=== PATIENT | male | born 1980 | race Caucasian/White ===

== ENCOUNTER → 2021-06-15 13:36 | Outpatient (CLI) | payer BC, SELFPAY ==
--- NOTE | ~2021-06-15 | XR_ITS ---
XR chest 2V DATE: 06/15/2021 13:54 INDICATION: Chest pain TECHNIQUE: PA and lateral views COMPARISON: None FINDINGS: Normal heart size. No hilar or mediastinal enlargement. No pulmonary infiltrate or consoli dation, pleural effusion or pulmonary vascular congestion or pneumothorax is detected. IMPRESSION: No active cardiopulmonary disease Reviewed, dictated and finalized at location [facility].
== END ==
PROVIDERS: PCP Family Medicine; Visit Provider Family Medicine
DX: R07.9 Chest pain, unspecified (principal)
CPT/HCPCS: 71046

== ENCOUNTER 2021-09-15 10:20 | Outpatient (CLI) | payer BC, SELFPAY ==
--- NOTE | ~2021-09-15 | XR_ITS ---
XR abdomen/kub 1V DATE: 09/15/2021 10:36 INDICATION: Diarrhea for one week TECHNIQUE: AP projection, 2 views COMPARISON: None FINDINGS: The lung bases are clear. The psoas shadows are intact. No visceromegaly or abnormal calcif ication is noted. There is no evidence of bowel obstruction. Included skeletal structures are unremar kable. IMPRESSION: Negative Reviewed, dictated and finalized at [facility]. Reviewed, dictated and finalized at location [facility]. IMPRESSION: Negative
[2021-09-15 16:28] LABS: IFOB Positive Control Positive; Immunochemical Fecal Occult Bl Positive (N)
[2021-09-15 16:44] LABS: Toxigenic C. Diff NEGATIVE (NEGATIVE)
== END 2021-09-15 10:21 | disposition home or self-care (01) ==
PROVIDERS: PCP Family Medicine; Visit Provider Physician Assistant
DX: R19.7 Diarrhea, unspecified (principal); R10.9 Unspecified abdominal pain
CPT/HCPCS: 74018; 82274; 87045; 87177; 87209; 87427; 87493; 89055

== ENCOUNTER 2021-11-08 01:51 | Day surgery (SDC) | payer BC, SELFPAY ==
[2021-10-31 11:11] VITALS: BMI 30.4
[2021-11-08 10:16] VITALS: BP 134/83; PULSE 77; RESP 18; TEMP 36.5; O2SAT 100
[2021-11-08] MEDS: LACTATED RINGERS 1,000 ML 150 ML IV CONT (10:18)
--- NOTE | 2021-11-08 10:44 | WPDANESEPPF ---
Anes - Initial Pre Proc Eval Procedure: Operation Date: 11/08/21 13:00 Proposed Procedures p Colonoscopy - Pola Canela MD Date/Time: 11/08/21 10:44 Surgeon: Pola Canela MD Pre Op Diagnosis: occult GI bleed Patient Data Age: 41 Gender: M Height: 1.83 m Weight: 100.2 kg Last Vital Signs Temp 97.7 F 11/08/21 10:16 Pulse 77 11/08/21 10:16 Resp 18 11/08/21 10:16 BP 134/83 11/08/21 10:16 Pulse Ox 100 11/08/21 10:16 O2 Del Method Room Air 11/08/21 10:16 Allergies Allergy/AdvReac Type Severity Reaction Status Date / Time No Known Allergies Allergy Verified 11/08/21 10:15 Home Medications Medication Instructions Recorded Confirmed Type rosuvastatin 10 mg tablet (Crestor) 10 mg PO .HS #90 tabs 09/13/21 11/08/21 Rx lisinopril 40 mg tablet 40 mg PO DAILY #90 tabs 10/14/21 11/08/21 Rx Patient hx anesthesia problems: none Family hx anesthesia problems: none Results Review: All pre-operative results and documents have been reviewed as part of the pre-operative evaluation. [facility], [facility] Past Medical History Medical History Diarrhea History of high cholesterol History of hypertension Occult blood in stools Family History Family History Father Heart disease Hypertension Mother Heart disease Hypertension Social History Social History Smoking status: Never smoker Second hand tobacco smoke exposure: No Alcohol intake: current Drinks per week: 6 Alcohol use details: BEERS/WINE Substance use: never Substance use type: does not use Living arrangements: with family Gender identity (if verbalized by the patient): Male Spiritual care concerns: No Anes - Eval Final PreProcedure Day of Procedure 11/08/21 10:44 Patient weight: overweight Heart: regular rate and rhythm Lungs: clear to auscultation Airway: Mallampati scale class II Neurological: alert and oriented Last oral intake: >/= 8 hours ASA classification: II Emergent: no Anesthetic plan: proceed Anesthesia type and monitoring: general GIVS and standard monitoring Results Review: All pre-operative results and documents have been reviewed as part of the pre-operative evaluation. Informed Consent: The patient's anesthetic plan and its attendant risks and benefits were discussed with the patient/family/POA. Questions were solicited and answers provided to the satisfaction of the patient/family/POA.
--- NOTE | 2021-11-08 10:56 | WPDHPUPDATE1 ---
History and Physical Update Update Date/Time: 11/08/21 10:56 History and Physical has been reviewed, including an updated exam of the patient. There are NO changes in the patient's condition. Risks, benefits, and alternatives have been discussed and questions answered. Patient agrees to proceed with procedure.
[2021-11-08 11:12] VITALS: BP 111/66; PULSE 78; RESP 20; O2SAT 100
[2021-11-08 11:22] VITALS: BP 112/75; PULSE 66; RESP 21; O2SAT 100
[2021-11-08 11:32] VITALS: BP 122/91; PULSE 60; RESP 16; O2SAT 100
== END 2021-11-08 11:42 | disposition home or self-care (01) ==
PROVIDERS: PCP Family Medicine; Visit Provider Internal Medicine Gastroenterology
PROC: 0DJD8ZZ Inspection of Lower Intestinal Tract, Via Natural or Artificial Opening Endoscopic (ICD-10-PCS; CPT 45378; principal; 2021-11-08 13:00)
DX: Z12.11 Encounter for screening for malignant neoplasm of colon (principal); R19.5 Other fecal abnormalities; K64.8 Other hemorrhoids; I10 Essential (primary) hypertension; E78.00 Pure hypercholesterolemia, unspecified
CPT/HCPCS: 45378; J2704; J7120

== ENCOUNTER → 2021-12-21 09:51 | Outpatient (CLI) | payer BC, SELFPAY ==
--- NOTE | ~2021-12-21 | XR_ITS ---
XR_CERV2-3V_CR DATE: 12/21/2021 10:12 INDICATION: Right neck and arm pain for 2 weeks. No injury. TECHNIQUE: AP, lateral, open-mouth views COMPARISON: None FINDINGS: Normal alignment of the cervical spine. C1 and C2 are normally aligned and the odontoid pro cess is intact. No fracture or dislocation or locked facet or prevertebral soft tissue swelling. Cerv ical interspaces are preserved. IMPRESSION: No significant abnormality Reviewed, dictated and finalized at [facility]. Reviewed, dictated and finalized at location [facility]. 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
== END ==
PROVIDERS: PCP Family Medicine; Visit Provider Family Medicine
DX: M54.2 Cervicalgia (principal)
CPT/HCPCS: 72040

== ENCOUNTER 2022-04-17 00:57 | Day surgery (SDC) | payer BC, SELFPAY ==
[2022-04-12 11:55] VITALS: BMI 30.5
[2022-04-17 10:32] VITALS: BP 128/90; PULSE 77; RESP 18; TEMP 36.1; O2SAT 100; BMI 30.4
[2022-04-17] MEDS: LACTATED RINGERS 1,000 ML 150 ML IV CONT (10:44)
--- NOTE | 2022-04-17 10:57 | WPDANESEPPF ---
Anes - Initial Pre Proc Eval Procedure: Operation Date: 04/17/22 12:30 Proposed Procedures p Esophagogastroduodenoscopy - Pola Canela MD Date/Time: 04/17/22 10:57 Surgeon: Pola Canela MD Pre Op Diagnosis: Abdominal pain Patient Data Age: 41 Gender: M Height: 1.83 m Weight: 101.9 kg Last Vital Signs Temp 36.1 C L 04/17/22 10:32 Pulse 77 04/17/22 10:32 Resp 18 04/17/22 10:32 BP 128/90 04/17/22 10:32 Pulse Ox 100 04/17/22 10:32 O2 Del Method Room Air 04/17/22 10:32 Allergies Allergy/AdvReac Type Severity Reaction Status Date / Time No Known Allergies Allergy Verified 04/17/22 10:31 Home Medications Medication Instructions Recorded Confirmed Type lisinopril 40 mg tablet 40 mg PO DAILY #90 tabs 10/14/21 04/17/22 Rx rosuvastatin 10 mg tablet (Crestor) 10 mg PO .HS #90 tabs 12/20/21 04/17/22 Rx Patient hx anesthesia problems: none Family hx anesthesia problems: none Results Review: All pre-operative results and documents have been reviewed as part of the pre-operative evaluation. [facility] Past Medical History Medical History Colon cancer screening Diarrhea History of high cholesterol History of hypertension Non-cardiac chest pain Occult blood in stools Upper abdominal pain Surgical History Surgical History (Updated 04/17/22 @ 10:57 by Shahzad Henson MD) H/O colonoscopy Family History Family History Father Heart disease Hypertension Mother Heart disease Hypertension Social History Social History Smoking status: Never smoker Second hand tobacco smoke exposure: No Alcohol intake: current Drinks per week: 6 Alcohol use details: BEERS/WINE Substance use: never Substance use type: does not use Living arrangements: with family Occupation/Education: occupation Gender identity (if verbalized by the patient): Male Spiritual care concerns: No Anes - Eval Final PreProcedure Day of Procedure 04/17/22 10:57 Patient weight: obese Heart: regular rate and rhythm Lungs: clear to auscultation Airway: Mallampati scale class II Neurological: alert and oriented Last oral intake: >/= 8 hours ASA classification: II Emergent: no Anesthetic plan: proceed Anesthesia type and monitoring: general GIVS and standard monitoring Results Review: All pre-operative results and documents have been reviewed as part of the pre-operative evaluation. Informed Consent: The patient's anesthetic plan and its attendant risks and benefits were discussed with the patient/family/POA. Questions were solicited and answers provided to the satisfaction of the patient/family/POA.
--- NOTE | 2022-04-17 11:39 | WPDHPUPDATE1 ---
History and Physical Update Update Date/Time: 04/17/22 11:39 History and Physical has been reviewed, including an updated exam of the patient. There are NO changes in the patient's condition. Risks, benefits, and alternatives have been discussed and questions answered. Patient agrees to proceed with procedure.
[2022-04-17 11:49] VITALS: BP 100/52; PULSE 68; RESP 20; O2SAT 100
[2022-04-17 11:59] VITALS: BP 101/54; PULSE 75; RESP 22; O2SAT 100
[2022-04-17 12:09] VITALS: BP 105/66; PULSE 62; RESP 17; O2SAT 100
== END 2022-04-17 12:18 | disposition home or self-care (01) ==
PROVIDERS: PCP Family Medicine; Visit Provider Internal Medicine Gastroenterology
PROC: 0DJ08ZZ Inspection of Upper Intestinal Tract, Via Natural or Artificial Opening Endoscopic (ICD-10-PCS; CPT 43235; principal; 2022-04-17 12:30)
DX: R10.11 Right upper quadrant pain (principal); K21.00 Gastro-esophageal reflux disease with esophagitis, without bleeding; K44.9 Diaphragmatic hernia without obstruction or gangrene; E78.00 Pure hypercholesterolemia, unspecified; I10 Essential (primary) hypertension; R07.89 Other chest pain
CPT/HCPCS: 43239; 88305; J2704; J7120

== ENCOUNTER 2022-04-17 09:30 | Outpatient (CLI) | payer BC, SELFPAY ==
--- NOTE | ~2022-04-17 | US_ITS ---
Abdominal Sonogram: Real-time sonographic imaging of the abdomen was performed. Clinical History: Abdominal pain Findings: The liver appears mildly heterogeneous, with no evidence of mass lesion or bile duct dilat ation. Main portal vein demonstrates normal direction of flow. The spleen is normal in size without e vidence of focal lesion. The gallbladder is well distended, and appears normal with no evidence of g allstone or wall thickening. The common bile duct measures 6 mm. The visualized pancreas, aorta, and IVC are unremarkable. The right kidney measures 12.5 cm in length and the left kidney measures 12.0 cm. There is no hydronephrosis or renal calculus. Impression: Heterogeneous hepatic echotexture raises the possibility of fatty infiltration of the chronic liver d isease. Correlate clinically and with LFTs. Reviewed, dictated and finalized at [facility]. Impression: Heterogeneous hepatic echotexture raises the possibility of fatty infiltration of the chronic liver disease. Correlate clinically and with LFTs.
== END 2022-04-17 09:31 | disposition home or self-care (01) ==
PROVIDERS: PCP Family Medicine; Visit Provider Internal Medicine Gastroenterology
DX: R10.10 Upper abdominal pain, unspecified (principal); R07.89 Other chest pain
CPT/HCPCS: 76700

== ENCOUNTER 2022-08-01 01:09 | Day surgery (SDC) | payer BC, SELFPAY ==
[2022-08-01 11:26] VITALS: BP 153/88; PULSE 89; RESP 18; TEMP 36.6; O2SAT 100
--- NOTE | 2022-08-01 11:45 | W.PM.PROC2 ---
Procedure Note - Detailed Date of Procedure 08/01/22 Pre-op Diagnosis hemorrhoids Post-op Diagnosis Same Procedure Performed irc of internal hemorrhoids Surgeon Pola Canela MD Anesthesia None Description of Procedure noted skin tags in anus, no fissure, no bleeding. Noted small size internal hemorrhoids with anoscopy, then advanced IRC probe and hemorrhoids treated at 1.5 seconds x5
== END 2022-08-01 11:51 | disposition home or self-care (01) ==
PROVIDERS: PCP Family Medicine; Visit Provider Internal Medicine Gastroenterology
PROC: (CPT 46930; principal; 2022-08-01 11:45)
DX: K64.8 Other hemorrhoids (principal)
CPT/HCPCS: 46930

== ENCOUNTER → 2023-04-06 08:09 | Outpatient (CLI) | payer BC, SELFPAY ==
--- NOTE | ~2023-04-06 | US_ITS ---
Limited Abdominal Sonogram: Real-time sonographic imaging of the right upper quadrant was performed. Clinical History: Abdominal pain Findings: The liver appears normal with no evidence of mass lesion or bile duct dilatation. Main por margarito vein demonstrates normal direction of flow. The gallbladder is well distended, and appears normal with no evidence of gallstone or wall thickening. The common bile duct measures 3 mm. The pancreas, aorta, and IVC are largely obscured by bowel gas shadowing. Right kidney measures 11.7 cm in length, without hydronephrosis. Impression: No significant abnormality seen. Reviewed, dictated and finalized at location . 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
== END ==
PROVIDERS: PCP Family Medicine; Visit Provider Family Medicine
DX: R10.11 Right upper quadrant pain (principal)
CPT/HCPCS: 76705